=== PATIENT | male | born 1945 | race Caucasian/White ===

== ENCOUNTER → 2018-05-31 11:18 | Outpatient (CLI) | payer OTHER, SELFPAY ==
--- NOTE | 2018-05-31 | DI.MRI.S_ITS ---
PROCEDURE: MR LUMBAR SPINE WO CON INDICATIONS: LUMBAR DEGENERATIVE DISC DISEASE TECHNIQUE: Noncontrast sagittal T1 spin echo and T2 fast echo, coronal T2, sagittal STIR, axial T1 and T2 fast spin echo through the lumbar spine. COMPARISON: [facility], CR, XR LUMBAR SPINE 2 OR 3 VIEWS, 05/24/2018, 10:43. FINDINGS: Image quality: Excellent. Alignment and Curvature: 5 lumbar type vertebral bodies are present by plain film. Moderate rightward curvature of the mid lumbar spine. Mild grade 1 retrolisthesis of L1 on L2, L2 on L3, L3 on L4, L4-L5, and L5 on S1. Bone Marrow: Marrow is of normal overall signal. No acute vertebral body compression fractures. Moderate chronic wedging of L1. Schmorl's node invaginates the superior L1 endplate, with moderate surrounding reactive signal. Mild reactive signal within the endplates adjacent to the L1-L2, L2-L3, L3-L4, L4-L5, and L5-S1 intervertebral discs is present. L1 hemangioma is present. L4 hemangioma is present. Spinal Cord: Conus medullaris terminates at the upper L1 level. Visualized cord demonstrates normal signal and size. Paraspinous Soft Tissues: No paravertebral masses. L1-L2: Mild disc height loss and desiccation. Mild diffuse disc bulge. Mild facet and ligament flavum hypertrophy. Moderate for lipomatosis. Mild canal stenosis. Mild bilateral foraminal stenosis. L2-L3: Moderate disc height loss and desiccation. Mild diffuse disc bulge/osteophyte. Mild facet and ligamentum flavum hypertrophy bilaterally. Mild epidural lipomatosis. Mild canal stenosis. Mild bilateral foraminal stenosis. L3-L4: Severe disc height loss and desiccation. Mild diffuse disc bulge/osteophyte. Moderate facet hypertrophy bilaterally. Mild epidural lipomatosis. Mild canal stenosis. Mild bilateral foraminal stenosis. L4-L5: Moderate disc height loss and desiccation. Mild diffuse disc bulge. Mild bilateral facet and ligamentum flavum hypertrophy. Mild epidural lipomatosis. Mild canal stenosis. Mild left and moderate right foraminal stenosis. L5-S1: Moderate disc height loss and desiccation. Mild diffuse disc bulge, with superimposed broad based right far lateral protrusion. Mild bilateral facet hypertrophy. Mild canal stenosis. Moderate right and mild left foraminal stenosis. IMPRESSION: 1. Multilevel degenerative disc and facet disease, as well as ligamentum flavum hypertrophy and epidural lipomatosis. 2. Mild multilevel canal stenoses. 3. Multilevel foraminal stenoses, worst at L4-L5 on the right, and at L5-S1 on the right, where there are moderate foraminal stenoses. 4. Superior L1 Schmorl's node, possibly subacute. Dictated by: Linda Hernandez M.D. on 05/31/2018 at 13:17 Approved by: Linda Hernandez M.D. on 05/31/2018 at 13:22
== END ==
PROVIDERS: PCP Family Medicine; Visit Provider Podiatrist
DX: M51.36 Other intervertebral disc degeneration, lumbar region (principal); M51.37 Other intervertebral disc degeneration, lumbosacral region; M48.061 Spinal stenosis, lumbar region without neurogenic claudication; M48.07 Spinal stenosis, lumbosacral region; M51.46 Schmorl's nodes, lumbar region; E88.2 Lipomatosis, not elsewhere classified
CPT/HCPCS: 72148

== ENCOUNTER 2020-07-12 13:52 | Emergency (ER) | payer MEDICARE, OTHER, SELFPAY ==
[2020-07-12 14:00] VITALS: BP 154/70; PULSE 67; RESP 16; TEMP 36.3; O2SAT 99; BMI 28.4
[2020-07-12 14:57] LABS: Add Manual Diff / Slide Review NO; Basophils Absolute Auto 0 /uL (0-100); Basophils Percent Auto 0.7 % (0-2); Eosinophils Absolute Auto 100 /uL (0-450); Eosinophils Percent Auto 1.8 % (2-4); Hematocrit 36.3 % (41-53); Lymphocytes Absolute Auto 1700 /uL (1100-4500); Lymphocytes Percent Auto 30.6 % (25-40); Mean Corpuscular Volume 97.1 fL (80-100); Monocytes Absolute Auto 500 /uL (0-900); Monocytes Percent Auto 9.7 % (3-14); Neutrophils Absolute Auto 3100 /uL (1500-7000); Neutrophils Percent Auto 57.2 % (50-75); Platelet Count 163 X10^3/uL (150-400); Red Blood Cell Count 3.74 X10^6/uL (4.5-5.9); White Blood Cell Count 5.4 X10^3/uL (4.5-11.0)
[2020-07-12 15:00] LABS: Appearance Urine UA SL CLOUDY; Bilirubin Urine UA NEGATIVE (NEGATIVE); Color Urine UA BROWN; Glucose Urine UA NEGATIVE (Negative); Ketones Urine UA TRACE (NEGATIVE); Leukocyte Esterase Urine UA TRACE (NEGATIVE); Nitrite Urine UA NEGATIVE (Negative); Occult Blood Urine UA 3+ (Negative); Protein Urine UA 2+ (Negative); Specific Gravity Urine UA 1.025 (1.000-1.035); Urobilinogen Urine UA 0.2 E.U./dL (0.2)
[2020-07-12 15:07] LABS: Alanine Aminotransferase 19 IU/L (<50); Albumin 4.2 g/dL (3.5-5.0); Albumin Globulin Ratio 1.4 (1.0-2.8); Alkaline Phosphatase 74 U/L (38-126); Aspartate Aminotransferase 28 IU/L (17-59); BUN Creatinine Ratio 23.5 (6-22); Bilirubin Total 0.5 mg/dL (0.2-1.3); Blood Urea Nitrogen 19 mg/dL (9-20); Calcium 9.2 mg/dL (8.4-10.2); Carbon Dioxide 28 mmol/L (22-32); Chloride 105 mmol/L (98-107); Estimated Glomerular Filt Rate > 60.0 mL/min (>60); Globulin 2.9 g/dL (1.7-4.1); Glucose 91 mg/dL (80-110); HEMOLYSIS < 15 (0-50); Lipase 125 U/L (23-300); Potassium 4.1 mmol/L (3.4-5.1); Sodium 137 mmol/L (137-145); Total Protein 7.1 g/dL (6.3-8.2)
[2020-07-12 15:08] LABS: Amorphous Sediment Urine 1+; Bacteria Urine Occasional (0-1); Culture Indicated Urine Specimen Cultured; RBC Urine >100/HPF (0-5/HPF); WBC Urine 1-5/HPF (0-5/HPF)
--- NOTE | 2020-07-12 15:09 | ED_ITS ---
HPI - Male Genitourinary <KIMBERLY DuncanBC - Last Filed: 07/12/20 18:02> General Chief complaint: Urogenital-Male Stated complaint: urine dark brown/on Xarelto/Topral/wbc low [id number] Time Seen by Provider: 07/12/20 14:23 Source: patient Mode of arrival: Ambulatory Limitations: no limitations History of Present Illness HPI Narrative: The patient is a 74-year-old male nonsmoker with history of atrial flutter who presents with a chief complaint of change in his urine that occurred last . He noticed that his urine suddenly became very dark, almost like Dr. Bahena. Denies any dysuria, slight frequency. Denies any abnormal urgency. States that he was recently started on Xarelto given his atrial flutter. He denies any fevers nausea vomiting or diarrhea. He is concerned about slight fluid retention as he states he has gained some weight recently. 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 He denies any abnormal flank pain. States that he has history of a fracture lumbar vertebrae which has given him chronic pain for the past several decades. He states that he was seeing the cardiology nurse, who encouraged him to get his urinary issues checked out. Related Data Previous Rx's Medication Instructions Recorded nitrofurantoin monohyd/m-cryst 100 mg PO Q12H 7 Days #14 cap 07/12/20 [Macrobid] Allergies Allergy/AdvReac Type Severity Reaction Status Date / Time No Known Allergies Allergy Verified 07/12/20 17:07 Review of Systems <JAMAR Duncan - Last Filed: 07/12/20 18:02> Review of Systems Narrative: GENERAL: Denies chills, fatigue, malaise, fever, sweats. HEENT: Denies sinus pain, ear pain, sore throat, difficulty swallowing, dizziness. RESPIRATORY: Denies dyspnea, cough, wheezing, hemoptysis, sputum. CARDIOVASCULAR: Denies chest pain, palpitations, orthopnea, edema, GASTROINTESTINAL: Denies nausea, vomiting, abdominal pain, diarrhea, constipation, melena. : See HPI MUSCULOSKELETAL: denies weakness, joint pain, or bony pain SKIN: Denies rash, skin lesions, or other NEUROLOGIC: Denies weakness, headache, numbness, change in speech, confusion, seizures, incoordination. PSYCHIATRIC: No concerning psychosocial issues. 12 point review of systems is negative except for those stated above Patient History <JAMAR Duncan - Last Filed: 07/12/20 18:02> Family History (Updated 03/21/15 @ 00:00 by Conversion Provider) Father Diabetes mellitus Heart disease Mother Cancer Social History Smoking Status: Never smoker Smoking Status: Never smoker alcohol intake frequency: 0-2 drinks per day Exam <JAMAR Duncan - Last Filed: 07/12/20 18:02> Narrative Exam Narrative: GENERAL: This is a well-nourished, well-developed patient, in no acute distress HEAD: Atraumatic. Normocephalic. No temporal or scalp tenderness. EYES: Pupils equal round and reactive. Extraocular motions intact. No scleral icterus. No injection or drainage. ENT: Nose without bleeding, purulent drainage or septal hematoma. Wearing a m ask. Airway patent. NECK: Trachea midline. No JVD or lymphadenopathy. Supple, nontender, no meningea l signs. CARDIOVASCULAR: Regular rate and rhythm RESPIRATORY: Clear to auscultation. Breath sounds equal bilaterally. No wheezes, rales, or rhonchi. No cough. No increased respiratory effort. No accessory muscle use. GASTROINTESTINAL: Abdomen soft, non-tender, nondistended. No hepato-splenomegal y, or palpable masses. No guarding. EXTREMITIES: No clubbing, cyanosis, or edema. No joint tenderness, effusion, or edema noted. BACK: Nontender without deformity or crepitance. No CVA tenderness bilaterally NEURO: AOx3. Stable gait. SKIN: No rash or erythema. Initial Vital Signs Initial Vital Signs: Vital Signs Temperature 97.3 F L 07/12/20 14:00 Pulse Rate 67 07/12/20 14:00 Respiratory Rate 16 07/12/20 14:00 Blood Pressure 154/70 H 07/12/20 14:00 Pulse Oximetry 99 07/12/20 14:00 <Cassidy Forte DO - Last Filed: 07/12/20 19:36> Initial Vital Signs Initial Vital Signs: Vital Signs Temperature 97.3 F L 07/12/20 14:00 Pulse Rate 67 07/12/20 14:00 Respiratory Rate 16 07/12/20 14:00 Blood Pressure 154/70 H 07/12/20 14:00 Pulse Oximetry 99 07/12/20 14:00 Scores <JAMAR Duncan - Last Filed: 07/12/20 18:02> GCS [place] coma scale eye opening: Spontaneous [place] coma scale verbal response: Orientated [place] coma scale motor response: Obey commands [place] coma scale total score: 15 Course <JAMAR Duncan - Last Filed: 07/12/20 18:02> Orders Ordered: ED Orders 07/12/20 14:17 UA Complete [Urinalysis and Microscopic] Stat Urine Culture Stat 07/12/20 14:40 Complete Blood Count AUTO DIFF Stat Comprehensive Metabolic Panel Stat Creatine Kinase Stat Lipase Stat NT-proBNP (BNP-Adult 18+) Stat 07/12/20 14:50 EKG-12 Lead Stat Discontinued Medications Nitrofurantoin Macrocrystals (Nitrofurantoin Er 100 Mg Capsule) 100 mg PO NOW ONE Stop: 07/12/20 16:59 Last Admin: 07/12/20 17:20 Dose: 100 mg Documented by: LUNA Vital Signs Vital signs: Vital Signs - 8 hr 07/12/20 14:00 07/12/20 15:25 07/12/20 15:30 Temperature 97.3 F L Pulse Rate 67 60 59 L Respiratory Rate 16 25 H 14 Blood Pressure 154/70 H 148/71 H Pulse Oximetry 99 98 98 07/12/20 16:00 07/12/20 16:30 07/12/20 17:43 Temperature Pulse Rate 57 L 57 L 73 Respiratory Rate 15 14 20 Blood Pressure 145/71 H 153/75 H 142/73 H Pulse Oximetry 99 99 100 <Cassidy Forte DO - Last Filed: 07/12/20 19:36> Orders Ordered: ED Orders 07/12/20 14:17 UA Complete [Urinalysis and Microscopic] Stat Urine Culture Stat 07/12/20 14:40 Complete Blood Count AUTO DIFF Stat Comprehensive Metabolic Panel Stat Creatine Kinase Stat Lipase Stat NT-proBNP (BNP-Adult 18+) Stat 07/12/20 14:50 EKG-12 Lead Stat Discontinued Medications Nitrofurantoin Macrocrystals (Nitrofurantoin Er 100 Mg Capsule) 100 mg PO NOW ONE Stop: 12/07/20 16:59 Last Admin: 07/12/20 17:20 Dose: 100 mg Documented by: LUNA Vital Signs Vital signs: Vital Signs - 8 hr 07/12/20 14:00 07/12/20 15:25 07/12/20 15:30 Temperature 97.3 F L Pulse Rate 67 60 59 L Respiratory Rate 16 25 H 14 Blood Pressure 154/70 H 148/71 H Pulse Oximetry 99 98 98 07/12/20 16:00 07/12/20 16:30 07/12/20 17:43 Temperature Pulse Rate 57 L 57 L 73 Respiratory Rate 15 14 20 Blood Pressure 145/71 H 153/75 H 142/73 H Pulse Oximetry 99 99 100 MDM - Male Genitourinary <LUIS Duncan- - Last Filed: 07/12/20 18:02> Lab Data Attestation: I reviewed the patient's lab results. Result diagrams: 07/12/20 14:40 07/12/20 14:40 Labs: Lab Results 07/12/20 07/12/20 07/12/20 Range/Units 14:17 14:40 14:40 WBC 5.4 (4.5-11.0) X10^3/uL RBC 3.74 L (4.5-5.9) X10^6/uL Hgb 12.0 L (13.5-17.5) g/dL Hct 36.3 L (41-53) % MCV 97.1 (80-100) fL MCH 32.0 (26-34) PG MCHC 33.0 (30-36) % RDW 13.0 (11.6-14.8) % Plt Count 163 (150-400) X10^3/uL Neut % (Auto) 57.2 (50-75) % Lymph % (Auto) 30.6 (25-40) % [place] % (Auto) 9.7 (3-14) % Eos % (Auto) 1.8 L (2-4) % Baso % (Auto) 0.7 (0-2) % Neut # (Auto) 3100 (5583-0093) /uL Lymph # (Auto) 1700 (0129-3541) /uL [place] # (Auto) 500 (0-900) /uL Eos # (Auto) 100 (0-450) /uL Baso # (Auto) 0 (0-100) /uL Sodium 137 (137-145) mmol/L Potassium 4.1 (3.4-5.1) mmol/L Chloride 105 (98-107) mmol/L Carbon Dioxide 28 (22-32) mmol/L BUN 19 (9-20) mg/dL Creatinine 0.81 (0.66-1.25) mg/dL Estimated GFR > 60.0 (>60) mL/min BUN/Creatinine Ratio 23.5 H (6-22) Glucose 91 (80-110) mg/dL Calcium 9.2 (8.4-10.2) mg/dL Total Bilirubin 0.5 (0.2-1.3) mg/dL AST 28 (17-59) IU/L ALT 19 (<50) IU/L Alkaline Phosphatase 74 (38-126) U/L Total Creatine Kinase (55-170) U/L NT-Pro-B Natriuret Pep 320 H (<125) pg/mL Total Protein 7.1 (6.3-8.2) g/dL Albumin 4.2 (3.5-5.0) g/dL Globulin 2.9 (1.7-4.1) g/dL Albumin/Globulin Ratio 1.4 (1.0-2.8) Lipase 125 (23-300) U/L Urine Color Brown Urine Appearance Sl cloudy Urine pH 5.0 (4.5-8.0) Ur Specific [place] 1.025 (1.000-1.035) Urine Protein 2+ H (Negative) Urine Glucose (UA) Negative (Negative) g/dL Urine Ketones Trace H (NEGATIVE) Urine Occult Blood 3+ H (Negative) Urine Nitrate Negative (Negative) Urine Bilirubin Negative (NEGATIVE) Urine Urobilinogen 0.2 (0.2) E.U./dL Ur Leukocyte Esterase Trace H (NEGATIVE) Urine RBC >100/hpf H (0-5/HPF) Urine WBC 1-5/hpf (0-5/HPF) Amorphous Sediment 1+ Urine Bacteria Occasional (0-1) (None) Ur Culture Indicated? Specimen cultured 07/12/20 Range/Units 14:40 WBC (4.5-11.0) X10^3/uL RBC (4.5-5.9) X10^6/uL Hgb (13.5-17.5) g/dL Hct (41-53) % MCV (80-100) fL MCH (26-34) PG MCHC (30-36) % RDW (11.6-14.8) % Plt Count (150-400) X10^3/uL Neut % (Auto) (50-75) % Lymph % (Auto) (25-40) % [place] % (Auto) (3-14) % Eos % (Auto) (2-4) % Baso % (Auto) (0-2) % Neut # (Auto) (0829-0625) /uL Lymph # (Auto) (8938-4066) /uL [place] # (Auto) (0-900) /uL Eos # (Auto) (0-450) /uL Baso # (Auto) (0-100) /uL Sodium (137-145) mmol/L Potassium (3.4-5.1) mmol/L Chloride (98-107) mmol/L Carbon Dioxide (22-32) mmol/L BUN (9-20) mg/dL Creatinine (0.66-1.25) mg/dL Estimated GFR (>60) mL/min BUN/Creatinine Ratio (6-22) Glucose (80-110) mg/dL Calcium (8.4-10.2) mg/dL Total Bilirubin (0.2-1.3) mg/dL AST (17-59) IU/L ALT (<50) IU/L Alkaline Phosphatase (38-126) U/L Total Creatine Kinase 49 L (55-170) U/L NT-Pro-B Natriuret Pep (<125) pg/mL Total Protein (6.3-8.2) g/dL Albumin (3.5-5.0) g/dL Globulin (1.7-4.1) g/dL Albumin/Globulin Ratio (1.0-2.8) Lipase (23-300) U/L Urine Color Urine Appearance Urine pH (4.5-8.0) Ur Specific [place] (1.000-1.035) Urine Protein (Negative) Urine Glucose (UA) (Negative) g/dL Urine Ketones (NEGATIVE) Urine Occult Blood (Negative) Urine Nitrate (Negative) Urine Bilirubin (NEGATIVE) Urine Urobilinogen (0.2) E.U./dL Ur Leukocyte Esterase (NEGATIVE) Urine RBC (0-5/HPF) Urine WBC (0-5/HPF) Amorphous Sediment Urine Bacteria (None) Ur Culture Indicated? MDM Narrative Medical decision making narrative: The patient is a 74-year-old male nonsmoker on Xarelto who presents with a chief complaint of dark colored urine. His urine is slightly concerning for infection, leukocyte esterase. He is not in acute renal failure 0.81. He is not and rhabdomyolysis with a total CK 49. He appears well and nontoxic throughout stay in the ER, denies any concerns of pain. I spoke with Dr. Forte regarding the patient, and we elected to treat him for urinary tract infection at this point time rather than changing his Xarelto. I discussed at length the importance of following up with primary care provider in the next few days, as he will need to make sure that he is no longer having b lood in his urine and signs of infection have improved. He has not anemic with a hemoglobin of 12. Nitrofurantoin selected as the patient has good renal function does not interact with Xarelto. Patient has follow-up with primary care provider tomorrow. Given 1st dose in the emergency department, prescription sent in. Patient has no questions or concerns upon discharge and states understanding return precautions as well as follow-up care. <Cassidy Forte, DO - Last Filed: 07/12/20 19:36> Lab Data Labs: Lab Results 07/12/20 07/12/20 07/12/20 Range/Units 14:17 14:40 14:40 WBC 5.4 (4.5-11.0) X10^3/uL RBC 3.74 L (4.5-5.9) X10^6/uL Hgb 12.0 L (13.5-17.5) g/dL Hct 36.3 L (41-53) % MCV 97.1 (80-100) fL MCH 32.0 (26-34) PG MCHC 33.0 (30-36) % RDW 13.0 (11.6-14.8) % Plt Count 163 (150-400) X10^3/uL Neut % (Auto) 57.2 (50-75) % Lymph % (Auto) 30.6 (25-40) % [place] % (Auto) 9.7 (3-14) % Eos % (Auto) 1.8 L (2-4) % Baso % (Auto) 0.7 (0-2) % Neut # (Auto) 3100 (8796-7366) /uL Lymph # (Auto) 1700 (8552-1446) /uL [place] # (Auto) 500 (0-900) /uL Eos # (Auto) 100 (0-450) /uL Baso # (Auto) 0 (0-100) /uL Sodium 137 (137-145) mmol/L Potassium 4.1 (3.4-5.1) mmol/L Chloride 105 (98-107) mmol/L Carbon Dioxide 28 (22-32) mmol/L BUN 19 (9-20) mg/dL Creatinine 0.81 (0.66-1.25) mg/dL Estimated GFR > 60.0 (>60) mL/min BUN/Creatinine Ratio 23.5 H (6-22) Glucose 91 (80-110) mg/dL Calcium 9.2 (8.4-10.2) mg/dL Total Bilirubin 0.5 (0.2-1.3) mg/dL AST 28 (17-59) IU/L ALT 19 (<50) IU/L Alkaline Phosphatase 74 (38-126) U/L Total Creatine Kinase (55-170) U/L NT-Pro-B Natriuret Pep 320 H (<125) pg/mL Total Protein 7.1 (6.3-8.2) g/dL Albumin 4.2 (3.5-5.0) g/dL Globulin 2.9 (1.7-4.1) g/dL Albumin/Globulin Ratio 1.4 (1.0-2.8) Lipase 125 (23-300) U/L Urine Color Brown Urine Appearance Sl cloudy Urine pH 5.0 (4.5-8.0) Ur Specific [place] 1.025 (1.000-1.035) Urine Protein 2+ H (Negative) Urine Glucose (UA) Negative (Negative) g/dL Urine Ketones Trace H (NEGATIVE) Urine Occult Blood 3+ H (Negative) Urine Nitrate Negative (Negative) Urine Bilirubin Negative (NEGATIVE) Urine Urobilinogen 0.2 (0.2) E.U./dL Ur Leukocyte Esterase Trace H (NEGATIVE) Urine RBC >100/hpf H (0-5/HPF) Urine WBC 1-5/hpf (0-5/HPF) Amorphous Sediment 1+ Urine Bacteria Occasional (0-1) (None) Ur Culture Indicated? Specimen cultured 07/12/20 Range/Units 14:40 WBC (4.5-11.0) X10^3/uL RBC (4.5-5.9) X10^6/uL Hgb (13.5-17.5) g/dL Hct (41-53) % MCV (80-100) fL MCH (26-34) PG MCHC (30-36) % RDW (11.6-14.8) % Plt Count (150-400) X10^3/uL Neut % (Auto) (50-75) % Lymph % (Auto) (25-40) % [place] % (Auto) (3-14) % Eos % (Auto) (2-4) % Baso % (Auto) (0-2) % Neut # (Auto) (6911-7108) /uL Lymph # (Auto) (6325-0052) /uL [place] # (Auto) (0-900) /uL Eos # (Auto) (0-450) /uL Baso # (Auto) (0-100) /uL Sodium (137-145) mmol/L Potassium (3.4-5.1) mmol/L Chloride (98-107) mmol/L Carbon Dioxide (22-32) mmol/L BUN (9-20) mg/dL Creatinine (0.66-1.25) mg/dL Estimated GFR (>60) mL/min BUN/Creatinine Ratio (6-22) Glucose (80-110) mg/dL Calcium (8.4-10.2) mg/dL Total Bilirubin (0.2-1.3) mg/dL AST (17-59) IU/L ALT (<50) IU/L Alkaline Phosphatase (38-126) U/L Total Creatine Kinase 49 L (55-170) U/L NT-Pro-B Natriuret Pep (<125) pg/mL Total Protein (6.3-8.2) g/dL Albumin (3.5-5.0) g/dL Globulin (1.7-4.1) g/dL Albumin/Globulin Ratio (1.0-2.8) Lipase (23-300) U/L Urine Color Urine Appearance Urine pH (4.5-8.0) Ur Specific [place] (1.000-1.035) Urine Protein (Negative) Urine Glucose (UA) (Negative) g/dL Urine Ketones (NEGATIVE) Urine Occult Blood (Negative) Urine Nitrate (Negative) Urine Bilirubin (NEGATIVE) Urine Urobilinogen (0.2) E.U./dL Ur Leukocyte Esterase (NEGATIVE) Urine RBC (0-5/HPF) Urine WBC (0-5/HPF) Amorphous Sediment Urine Bacteria (None) Ur Culture Indicated? Discharge Plan Departure Patient Disposition: Home Clinical Impression: Urinary tract infection Qualifiers: Urinary tract infection type: site unspecified Hematuria presence: with hematuria Qualified Code(s): N39.0 - Urinary tract infection, site not specified Instructions: DI for Urinary Tract Infection (UTI) Activity Restrictions/Additional Instructions: Thank you for trusting us with your care today. As discussed, your urine is concerning for infection with blood and leukocyte esterase. I have prescribed antibiotic and sent your prescription to [facility]. We have given your 1st dose in the emergency department. Please monitor for fevers, decreased urine output and come back to the emergency department for any acute concerns. Please follow-up with primary care provider in the next few days. As discussed, your urine will need to be rechecked to make sure that there is no longer blood in it. At this point, if it gets worse or does not get better with the antibiotics, your blood thinner will likely need to be reconsidered. Please follow-up with primary care provider. Prescriptions: New nitrofurantoin monohyd/m-cryst [Macrobid] 100 mg capsule 100 mg PO Q12H 7 Days Qty: 14 RF: 0 Referrals: Kraig Rodriguez MD [Primary Care Provider] - <Cassidy Forte DO - Last Filed: 07/12/20 19:36> Cosign ED Attending Cosignature Attestation: I was immediately available in the department for consultation. This documentation has been reviewed and I agree with assessment and plan, case discussed with myself and plan included. Supervised by Cassidy Forte DO
[2020-07-12 15:16] LABS: NT-proBNP (BNP-Adult 18+) 320 pg/mL (<125)
[2020-07-12 15:25] VITALS: PULSE 60; RESP 25; O2SAT 98
[2020-07-12 15:29] LABS: Creatine Kinase 49 U/L (55-170)
[2020-07-12 15:30] VITALS: BP 148/71; PULSE 59; RESP 14; O2SAT 98
[2020-07-12 16:00] VITALS: BP 145/71; PULSE 57; RESP 15; O2SAT 99
[2020-07-12 16:30] VITALS: BP 153/75; PULSE 57; RESP 14; O2SAT 99
[2020-07-12] MEDS: NITROFURANTOIN ER 100 MG CAPSULE PO (17:20)
[2020-07-12 17:43] VITALS: BP 142/73; PULSE 73; RESP 20; O2SAT 100
== END 2020-07-12 17:47 | disposition home or self-care (01) ==
PROVIDERS: Emergency Medicine; Emergency Provider Nurse Practitioner Family; PCP Family Medicine
DX: N39.0 Urinary tract infection, site not specified (principal); I48.92 Unspecified atrial flutter
CPT/HCPCS: 36415; 80053; 81001; 82550; 83690; 83880; 85025; 87086; 93005; 99281; 99284

== ENCOUNTER 2020-08-15 12:42 | Emergency (ER) | payer MEDICARE, OTHER, SELFPAY ==
[2020-08-15] VITALS (7 sets, daily range): BP systolic 133–167; BP diastolic 67–81; PULSE 57–64; RESP 17–21; TEMP 36.3; O2SAT 96–100; BMI 28.4
[2020-08-15 14:13] LABS: Bacteria Urine None Seen; WBC Urine None Seen (0-5/HPF)
[2020-08-15 14:24] LABS: Appearance Urine UA TURBID; Bilirubin Urine UA NEGATIVE (NEGATIVE); Color Urine UA RED; Glucose Urine UA NEGATIVE (Negative); Ketones Urine UA NEGATIVE (NEGATIVE); Leukocyte Esterase Urine UA NEGATIVE (NEGATIVE); Nitrite Urine UA NEGATIVE (Negative); Occult Blood Urine UA 3+ (Negative); Protein Urine UA 2+ (Negative); Urobilinogen Urine UA 0.2 E.U./dL (0.2); pH Urine UA 6.5 (4.5-8.0)
[2020-08-15 14:25] LABS: Culture Indicated Urine Cult Not Indicated; RBC Urine >100/HPF (0-5/HPF)
--- NOTE | 2020-08-15 15:10 | ED.MALEGU ---
HPI - Male Genitourinary General Chief complaint: Urogenital-Male Stated complaint: urinating blood Time Seen by Provider: 08/15/20 15:10 Source: patient and old records reviewed Mode of arrival: Ambulatory Limitations: no limitations History of Present Illness HPI Narrative: This is a 74-year-old male who comes in with complaint of hematuria. Patient states had this going on for several weeks. He states that he was told at 1 point he had a bladder infection. He has continued to have hematuria and lives out on [facility]. He did come in July for evaluation had urinalysis as well as blood work but did not have any imaging at that time. He is on Xarelto for atrial flutter and has only been on this for about 4 weeks after requiring a cardioversion at [facility]. His only other medication is metoprolol. Has not had any other symptoms. No fevers, no chills, no chest pain, shortness of breath, no nausea, no vomiting, no diarrhea constipation, no flank or abdominal pain. 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 He denies any dysuria, occasional hesitancy, no sense urgency or incomplete emptying or frequency. He has not had any testicular pain. He has not had any discharge. He denies any allergies to medications. Related Data Allergies Allergy/AdvReac Type Severity Reaction Status Date / Time No Known Allergies Allergy Verified 07/12/20 17:07 Review of Systems Review of Systems ROS Unobtainable: All systems reviewed & are unremarkable except as noted in HPI and below Patient History Medical History (Updated 08/15/20 @ 15:49 by Cassidy Forte DO) Atrial flutter Family History (Updated 03/21/15 @ 00:00 by Conversion Provider) Father Diabetes mellitus Heart disease Mother Cancer Social History Smoking Status: Never smoker Smoking Status: Never smoker alcohol intake frequency: 0-2 drinks per day Substance Use Type: does not use Exam Narrative Exam Narrative: GENERAL: Alert and oriented x three, well-nourished, well-appearing male in no acute distress. HEENT: Head normocephalic, atraumatic, EOMI, pupils reactive, face symmetric, moist mucous membranes NECK: Supple, full range of motion CARDIOVASCULAR: Regular rate and rhythm without murmurs, rubs or gallops. RESPIRATORY: Breath sounds equal bilaterally, no wheezes rales or rhonchi. ABDOMEN: Soft, nontender. Normoactive bowel sounds all 4 quadrants. No guarding or rebound, rigidity, no mass : No CVA tenderness. Male: normal external examination, no penile discharge or lesions, testicles non-tender. EXTREMITIES: Normal range of motion, no clubbing or edema. Neurovascularly intact NEUROLOGICAL: Cranial nerves II through XII grossly intact. Moving all extremities SKIN: Warm, dry, no petechiae, no rashes or lesions. Initial Vital Signs Initial Vital Signs: Vital Signs Temperature 97.3 F L 08/15/20 13:03 Pulse Rate 64 08/15/20 13:03 Respiratory Rate 18 08/15/20 13:03 Blood Pressure 149/76 H 08/15/20 13:03 Pulse Oximetry 99 08/15/20 13:03 Course Orders Ordered: ED Orders 08/15/20 14:09 UA Complete [Urinalysis and Microscopic] Stat 08/15/20 15:07 Basic Metabolic Panel Stat Complete Blood Count AUTO DIFF Stat 08/15/20 15:44 CT kidney ureter bladder (KUB) Stat Reevaluation(s) Reevaluation #1: Patient is updated on findings. Time: 17:13 Vital Signs Vital signs: Vital Signs - 8 hr 08/15/20 13:03 08/15/20 15:11 08/15/20 15:17 Temperature 97.3 F L Pulse Rate 64 57 L 58 L Respiratory Rate 18 21 Blood Pressure 149/76 H 133/67 Pulse Oximetry 99 99 100 08/15/20 15:30 08/15/20 16:00 08/15/20 16:30 Temperature Pulse Rate 57 L 57 L 58 L Respiratory Rate 18 18 Blood Pressure 145/70 H 167/81 H Pulse Oximetry 96 98 99 08/15/20 17:00 Temperature Pulse Rate 58 L Respiratory Rate 17 Blood Pressure 150/71 H Pulse Oximetry 98 MDM - Male Genitourinary Lab Data Attestation: I reviewed the patient's lab results. Result diagrams: 08/15/20 15:07 08/15/20 15:07 Labs: Lab Results 08/15/20 08/15/20 08/15/20 Range/Units 14:09 15:07 15:07 WBC 5.5 (4.5-11.0) X10^3/uL RBC 3.86 L (4.5-5.9) X10^6/uL Hgb 12.2 L (13.5-17.5) g/dL Hct 37.1 L (41-53) % MCV 96.0 (80-100) fL MCH 31.5 (26-34) PG MCHC 32.8 (30-36) % RDW 12.7 (11.6-14.8) % Plt Count 184 (150-400) X10^3/uL Neut % (Auto) 59.7 (50-75) % Lymph % (Auto) 28.8 (25-40) % Nance % (Auto) 8.6 (3-14) % Eos % (Auto) 2.4 (2-4) % Baso % (Auto) 0.5 (0-2) % Neut # (Auto) 3300 (4788-6029) /uL Lymph # (Auto) 1600 (3871-5206) /uL Nance # (Auto) 500 (0-900) /uL Eos # (Auto) 100 (0-450) /uL Baso # (Auto) 0 (0-100) /uL Sodium 140 (137-145) mmol/L Potassium 4.2 (3.4-5.1) mmol/L Chloride 104 (98-107) mmol/L Carbon Dioxide 30 (22-32) mmol/L BUN 22 H (9-20) mg/dL Creatinine 0.84 (0.66-1.25) mg/dL Estimated GFR > 60.0 (>60) mL/min BUN/Creatinine Ratio 26.2 H (6-22) Glucose 95 (80-110) mg/dL Calcium 9.6 (8.4-10.2) mg/dL Urine Color Red Urine Appearance Turbid Urine pH 6.5 (4.5-8.0) Ur Specific [place] 1.010 (1.000-1.035) Urine Protein 2+ H (Negative) Urine Glucose (UA) Negative (Negative) g/dL Urine Ketones Negative (NEGATIVE) Urine Occult Blood 3+ H (Negative) Urine Nitrate Negative (Negative) Urine Bilirubin Negative (NEGATIVE) Urine Urobilinogen 0.2 (0.2) E.U./dL Ur Leukocyte Esterase Negative (NEGATIVE) Urine RBC >100/hpf H (0-5/HPF) Urine WBC None seen (0-5/HPF) Urine Bacteria None seen (None) Ur Culture Indicated? Cult not indicated Imaging Data CT scan - abdomen/pelvis: Radiologist's Impression: [facility] [place] [address] [id number] Scan ReportSigned Patient: Link Woodruff CMR#: [id number]: 7Acct:[id number]/Sex: 74 / MDate of Service: 08/15/20Loc: EDAccession Number: [id number] Procedure: CT kidney ureter bladder (KUB) Ordering Provider: Cassidy Forte D.O. PROCEDURE: CT KIDNEY URETER BLADDER (KUB) INDICATIONS: painless hematuria. on thinners. TECHNIQUE: Noncontrast 5 mm thick sections acquired from the diaphragms to the symphysis. 5 mm thick coronal and sagittal reformats were then performed. For radiation dose reduction, the following was used: automated exposure control, adjustment of mA and/or kV according to patient size. COMPARISON: [facility], , RIBS UNILATERAL 2 VIEWS, 09/14/2016, 9:04. [facility], , CHEST 2 VIEW, 04/20/2017, 13:59. FINDINGS: Image quality: Excellent. Lung bases: Calcified right lower lobe granuloma, (3/6). Present on the chest radiograph from 2017. Heart size is normal. Urinary system: Both kidneys are normal in size. No kidney stones. No hydronephrosis or perinephric fat stranding. Both ureters appear non-dilated throughout their expected courses. Bladder wall thickness is normal; no calcified bladder stones. Other solid organs: Liver is normal in size. Benign cyst in the right lobe of the liver measuring 6.2 cm. Gallbladder is within normal limits. Pancreas is normal in contours. Spleen is normal in size. No adrenal nodules. Peritoneum and bowel: Unenhanced bowel loops demonstrate normal wall thickness and caliber. Normal appendix. No free fluid or air. Nodes and vessels: No retroperitoneal or mesenteric adenopathy by size criteria. Aorta and inferior vena cava are normal in caliber. Moderate calcified atherosclerotic plaque. Abdominal wall: Small fat containing periumbilical hernia. Pelvis: No free pelvic fluid. No definite inguinal hernias or adenopathy. Bones: No suspicious bony lesions. Extensive DDD. Mild retrolisthesis of L1 on L2 and L2 on L3. L1 Schmorl's node. No vertebral body compression fractures. IMPRESSION: 1. No kidney stones. No hydronephrosis. 2. Prominent stool throughout the colon. This could be due to constipation. 3. No free fluid. Consider CT IVP for hematuria. Dictated by: Raul Jeffrey M.D. on 08/15/2020 at 15:28 Approved by: Raul Jeffrey M.D. on 08/15/2020 at 15:39 [facility] Narrative Medical decision making narrative: Patient arrives today with complaint of painless hematuria there is no obvious signs of infection. On his last visit in July he had trace leukocyte esterase but urine culture showed no growth from 07/12/2020. Patient is on anticoagulation this does make it more likely to have hematuria but secondary to the difficulty of him being able to get imaging and further workup living on [facility] labs were repeated today as well as CT KUB ordered. Imaging does not show any clear cause for his hematuria. Patient was given referral to Urology he also has been given a referral to Dr. Liang was with Urology in [place]. Discharge Plan Departure Patient Disposition: Home Clinical Impression: Hematuria Instructions: DI for Hematuria Activity Restrictions/Additional Instructions: Follow-up with urology. Call for an appointment. You likely need cystoscopy. You may continue home medications including Xarelto. If your bleeding worsens significantly I would discussed with her physician stopping her Xarelto until you can be further evaluated. Return for fevers, lightheadedness or passing out, new abdominal, flank or changing back pain, persistent vomiting, inability to urinate, new chest pain or shortness of breath or other new or concerning symptoms. Referrals: Suly Lopez MD [Physician] - Raghav Liang MD [Non-Staff] - Kraig Rodriguez MD [Primary Care Provider] -
--- NOTE | 2020-08-15 15:44 | DI.CT.S_ITS ---
PROCEDURE: CT KIDNEY URETER BLADDER (KUB) INDICATIONS: painless hematuria. on thinners. TECHNIQUE: Noncontrast 5 mm thick sections acquired from the diaphragms to the symphysis. 5 mm thick coronal and sagittal reformats were then performed. For radiation dose reduction, the following was used: automated exposure control, adjustment of mA and/or kV according to patient size. COMPARISON: [facility], , RIBS UNILATERAL 2 VIEWS, 09/14/2016, 9:04. [facility], CHEST 2 VIEW, 04/20/2017, 13:59. FINDINGS: Image quality: Excellent. Lung bases: Calcified right lower lobe granuloma, (3/6). Present on the chest radiograph from 2017. Heart size is normal. Urinary system: Both kidneys are normal in size. No kidney stones. No hydronephrosis or perinephric fat stranding. Both ureters appear non-dilated throughout their expected courses. Bladder wall thickness is normal; no calcified bladder stones. Other solid organs: Liver is normal in size. Benign cyst in the right lobe of the liver measuring 6.2 cm. Gallbladder is within normal limits. Pancreas is normal in contours. Spleen is normal in size. No adrenal nodules. Peritoneum and bowel: Unenhanced bowel loops demonstrate normal wall thickness and caliber. Normal appendix. No free fluid or air. Nodes and vessels: No retroperitoneal or mesenteric adenopathy by size criteria. Aorta and inferior vena cava are normal in caliber. Moderate calcified atherosclerotic plaque. Abdominal wall: Small fat containing periumbilical hernia. Pelvis: No free pelvic fluid. No definite inguinal hernias or adenopathy. Bones: No suspicious bony lesions. Extensive DDD. Mild retrolisthesis of L1 on L2 and L2 on L3. L1 Schmorl's node. No vertebral body compression fractures. IMPRESSION: 1. No kidney stones. No hydronephrosis. 2. Prominent stool throughout the colon. This could be due to constipation. 3. No free fluid. Consider CT IVP for hematuria. Dictated by: Raul Jeffrey M.D. on 08/15/2020 at 15:28 Approved by: Raul Jeffrey M.D. on 08/15/2020 at 15:39
[2020-08-15 16:00] LABS: BUN Creatinine Ratio 26.2 (6-22); Blood Urea Nitrogen 22 mg/dL (9-20); Calcium 9.6 mg/dL (8.4-10.2); Carbon Dioxide 30 mmol/L (22-32); Chloride 104 mmol/L (98-107); Estimated Glomerular Filt Rate > 60.0 mL/min (>60); Glucose 95 mg/dL (80-110); HEMOLYSIS < 15 (0-50); Potassium 4.2 mmol/L (3.4-5.1); Sodium 140 mmol/L (137-145)
[2020-08-15 16:01] LABS: Add Manual Diff / Slide Review NO; Basophils Absolute Auto 0 /uL (0-100); Basophils Percent Auto 0.5 % (0-2); Eosinophils Absolute Auto 100 /uL (0-450); Eosinophils Percent Auto 2.4 % (2-4); Hematocrit 37.1 % (41-53); Hemoglobin 12.2 g/dL (13.5-17.5); Lymphocytes Absolute Auto 1600 /uL (1100-4500); Lymphocytes Percent Auto 28.8 % (25-40); Mean Corpuscular HGB Conc 32.8 % (30-36); Mean Corpuscular Hemoglobin 31.5 PG (26-34); Monocytes Absolute Auto 500 /uL (0-900); Monocytes Percent Auto 8.6 % (3-14); Neutrophils Absolute Auto 3300 /uL (1500-7000); Neutrophils Percent Auto 59.7 % (50-75); Platelet Count 184 X10^3/uL (150-400); Red Blood Cell Count 3.86 X10^6/uL (4.5-5.9); Red Cell Distribution Width 12.7 % (11.6-14.8); White Blood Cell Count 5.5 X10^3/uL (4.5-11.0)
--- NOTE | 2020-08-15 16:02 | PC.NURSE ---
pt is here for blood in urine, denies pain, N/V. Pt is on blood thinners for AFib.
== END 2020-08-15 17:28 | disposition home or self-care (01) ==
PROVIDERS: Emergency Provider Emergency Medicine; PCP Family Medicine
DX: R31.9 Hematuria, unspecified (principal); I48.92 Unspecified atrial flutter; Z79.01 Long term (current) use of anticoagulants
CPT/HCPCS: 36415; 74176; 80048; 81001; 85025; 99284

== ENCOUNTER → 2020-08-31 11:07 | Outpatient (CLI) | payer MEDICARE, OTHER, SELFPAY ==
--- NOTE | 2020-08-31 | DI.CT.S_ITS ---
PROCEDURE: CT ABDOMEN PELVIS WO/W CON INDICATIONS: gross hematuria TECHNIQUE: Optional 5 mm thick noncontrast images acquired from the diaphragm to the symphysis pubis. After the administration of intravenous contrast, 5 mm thick images acquired from the diaphragm to the symphysis pubis after a 10-minute delay. 2 mm thick coronal and sagittal reformats were then performed of the kidneys and ureters. For radiation dose reduction, the following was used: automated exposure control, adjustment of mA and/or kV according to patient size. COMPARISON: [facility], CR, CHEST 2 VIEW, 09/14/2016, 9:01. [facility], CT, CT KIDNEY URETER BLADDER (KUB), 08/15/2020, 16:09. FINDINGS: Image quality: Excellent. Lung bases: A calcified nodule is redemonstrated within the right lower lobe compatible with a calcified granuloma. This likely corresponds to a dense nodule on the prior chest x-ray. Heart size is normal. Moderate coronary arterial vascular calcification noted within the partially visualized heart. Urinary system: The kidneys demonstrate no renal stones or hydronephrosis. No perinephric fat stranding. There is symmetric bilateral renal enhancement. No discrete renal mass. There are a few small hypodense foci in the kidneys which are too small to characterize but likely represent small cysts. Renal calyces appear normal in morphology when filled with contrast without suspicious filling defects. Opacified portions of both ureters demonstrate normal in caliber. No calcified bladder stones. There is mild concentric bladder wall thickening and trabeculation. The prostate is slightly enlarged. Other solid organs: There is a lobulated cyst redemonstrated anteriorly in the right hepatic lobe. A few additional small hypodense foci are present throughout the liver which are too small to characterize but likely represent cysts. The gallbladder appears within normal limits without calcified gallstones. Biliary system is non-dilated. Pancreas enhances normally. No peripancreatic fat stranding or fluid collections. No pancreatic duct dilatation. The spleen is normal in size. No adrenal nodules. Peritoneum and bowel: Bowel loops demonstrate normal wall thickness and caliber. No free fluid or air. Nodes and vessels: No retroperitoneal or mesenteric adenopathy by size criteria. Aorta and inferior vena cava are normal in size. Abdominal wall: No ventral hernias. Pelvis: No pathologic free pelvic fluid. No inguinal hernias or adenopathy. Bones: No suspicious bony lesions. No vertebral body compression fractures. IMPRESSION: 1. No nephrolithiasis or suspicious filling defects within the renal collecting systems. No discrete renal mass identified. 2. Mild bladder wall thickening and trabeculation suggestive of chronic bladder outlet obstruction. The prostate is slightly enlarged. Dictated by: Jj Clay M.D. on 08/31/2020 at 17:02 Approved by: Jj Clay M.D. on 08/31/2020 at 17:10
== END ==
PROVIDERS: PCP Family Medicine; Referring Provider Urology; Visit Provider Urology
DX: R31.0 Gross hematuria (principal); N32.89 Other specified disorders of bladder
CPT/HCPCS: 74178

== ENCOUNTER → 2022-11-27 08:40 | Outpatient (CLI) | payer MEDICARE, OTHER, SELFPAY ==
--- NOTE | 2022-11-27 08:41 | DI.CT.S_ITS ---
PROCEDURE: CT CHEST WO CON INDICATIONS: F/U PNEUMONIA AND MEDIALSTINAL ADENOPATHY TECHNIQUE: Noncontrast 5 mm thick sections acquired from the pulmonary apices to the posterior costophrenic angles. 1 mm lung window, 5 mm thick coronal and sagittal and 7 mm axial MIP reformats were then acquired. For radiation dose reduction, the following was used: automated exposure control, adjustment of mA and/or kV according to patient size. COMPARISON: [facility], CR, CHEST 2 VIEW, 04/20/2017, 13:59. Outside Facility, RG, CT THORAX WITH CONTRAST, 10/21/2022, 21:10. FINDINGS: Image quality: Excellent. Lungs and pleura: No acute air space opacities. There is a 5 mm nodule in the right upper lobe (series 3, image 55). A 3 mm nodule is present in the superior segment of the right lower lobe (series 3, image 126). A calcified granuloma is present in the right lower lobe. Mild bilateral pleural nodularity without discrete pleural mass. No pleural effusions or pneumothorax. Central and peripheral airways are patent and normal in caliber. Mediastinum: Heart size is normal. Trace pericardial effusion. There is moderate coronary artery calcification consistent with atherosclerosis. No mediastinal adenopathy by size criteria. There is a 0.8 cm paratracheal lymph node, most likely reactive. Thoracic aorta and central pulmonary arteries are normal in size. Esophagus is normal in caliber. Small hiatal hernia. Bones and chest wall: No suspicious bony lesions. No vertebral body compression fractures. No axillary or supraclavicular adenopathy by size criteria. Thyroid gland is normal. Abdomen: Visualized upper abdominal solid organs and bowel loops appear normal in the absence of contrast. Note are made of hepatic cysts. IMPRESSION: 1. No acute pneumonia. 2. A prominent subcentimeter mediastinal lymph node in the right paratracheal area, most likely reactive. 3. There are couple of pulmonary nodules in right lung. Please see enclosed follow-up recommendation. 4. Moderate coronary artery atherosclerosis. Fleischner Society criteria for SOLID lung nodule followup. Nodule size (mm)Low-risk patientHigh-risk patient?4No follow-up neededFollow-up at 12 mo; if no change, no further follow-up>[id number] CT at 12 mo; if no change, no further follow-up needed.Initial follow-up CT at 6-12 mo, then 18-24 mo if no change. >6-8Initial follow-up CT at 6-12 mo, then 18-24 mo if no change. Initial follow-up CT at 3-6 mo, then 9-12 mo and 24 mo if no change. >8Follow-up CT at 3, 9, 24 mo. Or PET and/or biopsy.Same as for low-risk pts. Dictated by: John Loo M.D. on 12/04/2022 at 9:24 Approved by: John Loo M.D. on 12/04/2022 at 9:32
== END ==
PROVIDERS: PCP Family Medicine; Referring Provider Internal Medicine Critical Care Medicine; Visit Provider Internal Medicine Critical Care Medicine
DX: R59.0 Localized enlarged lymph nodes (principal); R91.8 Other nonspecific abnormal finding of lung field; I25.10 Atherosclerotic heart disease of native coronary artery without angina pectoris; K44.9 Diaphragmatic hernia without obstruction or gangrene; K76.89 Other specified diseases of liver
CPT/HCPCS: 71250

== ENCOUNTER → 2023-03-14 16:14 | Outpatient (CLI) | payer MEDICARE, OTHER, SELFPAY ==
--- NOTE | 2023-03-14 | DI.MRI.S_ITS ---
PROCEDURE: MR KNEE RT WO CON INDICATIONS: Unspecified internal derangement of right knee TECHNIQUE: Noncontrast sagittal PD fast spin echo and T2 fast spin echo with fat saturation, sagittal 3-D FLASH with fat saturation; coronal T1 spin echo and PD fast spin echo with fat saturation, and axial PD fast spin echo with fat saturation through the knee. COMPARISON: None. FINDINGS: Image quality: Excellent. Menisci: Medial extrusion of the medial meniscus is present. There is linear oblique and horizontal high signal intensity within the inner, middle, and peripheral thirds of the medial meniscal body and posterior horn, demonstrating inferior articular surface extension, indicating complex tearing. Linear oblique high T2 signal intensity traverses the inner, middle, and peripheral thirds of the lateral meniscal body, demonstrating inferior articular surface extension, indicating oblique tearing. Cruciate ligaments: The anterior and posterior cruciate ligaments appear intact. Medial structures: There is partial-thickness tearing of the anterior fibers of the medial collateral ligament. Visualized portions of the pes anserinus tendons appear normal. No abnormal bursal fluid. Lateral structures: The lateral collateral ligament, long and short heads of the biceps femoris tendon appear intact. The popliteus tendon appears normal. Iliotibial band appears normal. Anterior structures: The quadriceps and patellar tendons appear intact. Patellar alignment is normal. Lateral ventral trochlear prominence is present, with shallow trochlear groove. Moderate edema in the superolateral aspect of the infrapatellar fat pad. Bones and cartilage: No bone marrow contusions or fractures. Mild subchondral cyst formation within the lateral patellar apex and lateral femoral trochlea. Mild tricompartmental periarticular osteophyte formation. Moderate articular cartilage loss diffusely overlies the weight-bearing aspects of the medial femoral condyle and medial tibial plateau. Moderate articular cartilage loss overlies the medial and lateral patellar facets. Superimposed high-grade articular cartilage loss overlies the lateral patellar facet inferiorly. Joint space: There is physiologic knee joint fluid. No Muñiz's cyst. Normal appearing synovial plicae are incidentally noted. IMPRESSION: 1. Medial and lateral meniscal tearing. 2. Tricompartmental osteoarthritis with associated articular cartilage loss. 3. Findings consistent with lateral patellofemoral friction syndrome in the appropriate clinical setting. 4. Partial-thickness tearing of the anterior fibers of the medial collateral ligament. Dictated by: Linda Hernandez M.D. on 03/15/2023 at 9:02 Approved by: Linda Hernandez M.D. on 03/15/2023 at 9:05
== END ==
PROVIDERS: PCP Family Medicine; Referring Provider Family Medicine; Visit Provider Family Medicine
DX: S83.241A Other tear of medial meniscus, current injury, right knee, initial encounter (principal); S83.281A Other tear of lateral meniscus, current injury, right knee, initial encounter; S83.411A Sprain of medial collateral ligament of right knee, initial encounter; M23.91 Unspecified internal derangement of right knee
CPT/HCPCS: 73721

== ENCOUNTER → 2023-07-18 14:00 | Outpatient (CLI) | payer MEDICARE, OTHER, SELFPAY ==
--- NOTE | 2023-07-18 14:03 | DI.CT.S_ITS ---
PROCEDURE: CT CHEST ABD PEL W CON INDICATIONS: Abnormal weight loss TECHNIQUE: After the administration of oral and intravenous contrast, axial sections acquired from the supraclavicular neck to the pubic symphysis. Coronal and sagittal reformats were performed. For radiation dose reduction, the following was used: automated exposure control, adjustment of mA and/or kV according to patient size. COMPARISON: [facility], CT, CT KIDNEY URETER BLADDER (KUB), 08/15/2020, 16:09. Outside Facility, RG, CT THORAX WITH CONTRAST, 10/21/2022, 21:10. [facility], CT, CT ABDOMEN PELVIS WO/W CON, 08/31/2020, 11:14. [facility], CT, CT CHEST WO CON, 11/27/2022, 8:59. FINDINGS: Image quality: Excellent. CHEST: Lower Neck: No enlarged lymph nodes. Thyroid: Within normal limits. Axillae: No enlarged lymph nodes. Chest Wall: Unremarkable. Lungs and Airways: There are multiple lung nodules. Reference nodules are listed in the following: Nodule 1: 5 mm; right upper lobe; series 6, image 69; stable. Nodule 2: 3 mm; right lower lobe; series 6, image 139; stable. Nodule 3: 4 mm; left upper lobe; series 6, image 96; stable. There is a calcified nodule in the right lower lobe. Pleura: No pneumothorax or pleural effusions. Heart: Heart size is normal. No pericardial effusion. Moderate coronary artery atherosclerosis. Thoracic Vessels: The aorta and pulmonary arteries demonstrate normal size. Mediastinum and Sharri: No enlarged lymph nodes. Borderline sized reactive mediastinal and hilar lymph nodes are noted. Esophagus: No wall thickening. Small hiatal hernia. ABDOMEN: Liver: Mild hepatomegaly. There are multiple hepatic cysts. No solid mass. Gallbladder: No radiopaque gallstones or wall thickening. Biliary ducts: No biliary dilation. Pancreas: No ductal dilation. Spleen: Size is within normal limits. Adrenal Glands: No adrenal nodules. Kidneys and Ureters: No hydronephrosis. No solid mass. No complex renal cystic lesion which requires follow up. Stomach and Bowel: Appearance of gastric wall thickening is likely due to inadequate distention. Small bowel demonstrates normal caliber. Normal colonic caliber, without significant wall thickening. There is a large amount of stool in colon. Normal appendix. Peritoneum: Mild mesenteric stranding. No abnormal intraperitoneal fluid. No free air. Ventral Wall: No hernia. Abdominal Nodes: No retroperitoneal or mesenteric adenopathy by size criteria. Vessels: Aorta and inferior vena cava are normal in size. Moderate atherosclerosis. PELVIS: Pelvic Organs: Prostate is enlarged.. Bladder: Mild concentric thickening of urinary bladder suggests chronic bladder outlet obstruction. Pelvic Nodes: No enlarged lymph nodes. Miscellaneous: No inguinal hernias are seen. Bones: Scoliosis and degenerative changes in thoracic and lumbar spine. There is osteopenia. IMPRESSION: 1. A cause for weight loss is not identified on CT. 2. Stable pulmonary nodules. Recommend continue CT follow-up to document stability. 3. Mild mesenteric stranding, nonspecific and compatible with mesenteric panniculitis. 4. There is a large amount of stool in colon. 5. Enlargement of prostate. Mild bladder wall thickening suggests bladder outlet obstruction. Dictated by: John Loo M.D. on 07/18/2023 at 21:31 Approved by: John Loo M.D. on 07/19/2023 at 10:28
[2023-07-18 14:37] LABS: Estimated Glomerular Filt Rate > 60 mL/min (>60)
== END ==
PROVIDERS: Radiology Diagnostic Radiology; PCP Family Medicine; Referring Provider Family Medicine; Visit Provider Family Medicine
DX: R63.4 Abnormal weight loss (principal); R91.8 Other nonspecific abnormal finding of lung field; I25.10 Atherosclerotic heart disease of native coronary artery without angina pectoris; K76.89 Other specified diseases of liver; N40.0 Benign prostatic hyperplasia without lower urinary tract symptoms; M41.9 Scoliosis, unspecified; M47.814 Spondylosis without myelopathy or radiculopathy, thoracic region; M47.816 Spondylosis without myelopathy or radiculopathy, lumbar region
CPT/HCPCS: 36415; 71260; 74177; 82565; Q9967

== ENCOUNTER → 2024-02-22 16:12 | Outpatient (CLI) | payer MEDICARE, OTHER, SELFPAY ==
--- NOTE | 2024-02-22 16:13 | DI.MRI.S_ITS ---
PROCEDURE: MR SHOULDER LT WO CON INDICATIONS: LEFT SHOULDER PAIN TECHNIQUE: Noncontrast oblique coronal T2 fast spin echo with fat saturation, oblique sagittal T1 spin echo and T2 fast spin echo with fat saturation, axial T1 spin echo and T2 fast spin echo with fat saturation through the shoulder. COMPARISON: None. FINDINGS: Image quality: Excellent. Rotator cuff: Distal supraspinatus and infraspinatus tendinosis is seen. Low-grade partial-thickness tear involving superior to mid fibers of distal subscapularis near musculotendinous junction is also noted. No full-thickness rotator cuff tendon rupture. Sagittal images demonstrate no significant rotator cuff muscle atrophy. Bones and bursae: Moderate acromioclavicular joint osteoarthritic changes are seen with joint space narrowing and downward osteophyte formation depressing the musculotendinous junction of supraspinatus. Severe glenohumeral joint osteoarthritic changes are noted with near complete loss of joint space, extensive subchondral sclerosis and marginal osteophyte formation. Type 2 acromion, without an os acromiale. Marrow edema is noted involving medial aspect of humeral head and adjacent glenoid without discrete fracture line. Small to moderate amount of joint effusion and subacromial subdeltoid bursal fluid is seen. There are suggestion of loose bodies within tendon sheath of proximal biceps tendon along proximal humeral shaft medial to the bicipital groove. Capsule and soft tissues: There is global signal abnormality throughout posterior labrum and in anterior inferior labrum suggestive of extensive labral tear. Fluid distending bicipital tendon sheath is seen with mildly thickened proximal long head of biceps tendon. The rotator interval appears normal, without fibrosis. The coracohumeral ligament is normal in thickness. IMPRESSION: 1. 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 No fracture or dislocation. Contusion versus changes secondary to osteoarthritis involving glenoid and adjacent medial aspect of humeral head. 2. Small to moderate joint effusion and subacromial subdeltoid bursal fluid. Fluid also seen distending tendon sheath of proximal long head of biceps tendon along proximal humeral shaft containing multiple loose bodies. 3. Distal CT scan dated and infraspinatus tendinosis. Low-grade partial-thickness tear involving superior to mid fibers of distal subscapularis. No full-thickness rotator cuff tendon rupture. No muscle atrophy. 4. Suggestion of extensive posterior labral tear and anterior inferior labral tear. 5. Low to moderate grade tenosynovitis involving proximal long head of biceps. Dictated by: Remigio Zambrano M.D. on 02/25/2024 at 9:43 Approved by: Remigio Zambrano M.D. on 02/25/2024 at 9:58
== END ==
PROVIDERS: PCP Family Medicine; Referring Provider Family Medicine; Visit Provider Family Medicine
DX: M75.112 Incomplete rotator cuff tear or rupture of left shoulder, not specified as traumatic (principal); M19.012 Primary osteoarthritis, left shoulder; M25.412 Effusion, left shoulder; M75.22 Bicipital tendinitis, left shoulder
CPT/HCPCS: 73221

== ENCOUNTER → 2024-06-23 11:39 | Outpatient (CLI) | payer MEDICARE, OTHER, SELFPAY ==
--- NOTE | 2024-06-23 | DI.MRI.S_ITS ---
PROCEDURE: MR KNEE RT WO CON INDICATIONS: pain in right knee TECHNIQUE: Noncontrast sagittal PD fast spin echo and T2 fast spin echo with fat saturation, sagittal 3-D FLASH with fat saturation; coronal T1 spin echo and PD fast spin echo with fat saturation, and axial PD fast spin echo with fat saturation through the knee. COMPARISON: [facility], MR, MR KNEE RT WO CON, 03/14/2023, 16:49. FINDINGS: Image quality: Excellent. Menisci: Medial extrusion of the medial meniscus is present, as before. There is linear oblique and horizontal high T2 signal intensity involving the inner, middle, and peripheral thirds of the medial meniscal body and posterior horn, demonstrating inferior articular surface extension, indicating complex tearing, as before. Linear oblique high T2 signal intensity traverses the inner, middle, and peripheral thirds of the lateral meniscal body, demonstrating inferior articular surface extension, indicating oblique tearing, as before. Cruciate ligaments: The anterior and posterior cruciate ligaments appear intact. Medial structures: No change in chronic partial-thickness tearing of the anterior fibers of the medial collateral ligament. Visualized portions of the pes anserinus tendons appear normal. No abnormal bursal fluid. Lateral structures: The lateral collateral ligament, long and short heads of the biceps femoris tendon appear intact. The popliteus tendon appears normal. Iliotibial band appears normal. Anterior structures: The quadriceps and patellar tendons appear intact. Patellar alignment is normal. Lateral ventral trochlear prominence is present. Mild edema in the superolateral aspect of the infrapatellar fat pad. Bones and cartilage: No bone marrow contusions or fractures. Subchondral degenerative marrow edema within the patellar apex, lateral patellar facet, and lateral femoral trochlea. Mild tricompartmental periarticular osteophyte formation. Severe articular cartilage loss overlies the weight-bearing aspects of the medial femoral condyle and medial tibial plateau. Progressive, moderate and high-grade articular cartilage loss overlies the patellar apex and lateral patellar facet. Joint space: There is physiologic knee joint fluid. No Muñiz's cyst. Normal appearing synovial plicae are incidentally noted. IMPRESSION: 1. No change in medial and lateral meniscal tearing. 2. 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 3. No change in findings consistent with lateral patellofemoral friction syndrome in the appropriate clinical setting. 4. No change in partial-thickness tearing of the medial collateral ligament. Dictated by: Linda Hernandez M.D. on 06/23/2024 at 14:17 Approved by: Linda Hernandez M.D. on 06/23/2024 at 14:23
== END ==
PROVIDERS: PCP Family Medicine; Referring Provider Family Medicine; Visit Provider Family Medicine
DX: S83.231A Complex tear of medial meniscus, current injury, right knee, initial encounter (principal); S83.281A Other tear of lateral meniscus, current injury, right knee, initial encounter; S83.411A Sprain of medial collateral ligament of right knee, initial encounter; M17.11 Unilateral primary osteoarthritis, right knee; M25.561 Pain in right knee
CPT/HCPCS: 73721

== ENCOUNTER → 2025-02-19 09:04 | Outpatient (CLI) | payer MEDICARE, OTHER, SELFPAY ==
--- NOTE | 2025-02-19 09:07 | DI.RAD.S_ITS ---
PROCEDURE: XR LUMBAR SPINE 2-3V INDICATIONS: BACK PAIN TECHNIQUE: 3 views of the lumbar spine were acquired. COMPARISON: [facility], CT, CT CHEST ABD PEL W CON, 07/18/2023, 15:05. FINDINGS: Bones: 5 [id number] vertebrae are present. There is mildly scoliotic bony alignment without appreciable change from the curvature noted during CT scanning on review from 07/18/23. No new vertebral body compression fractures. Chronic degenerative change and facet osteoarthritis with a mild anterior wedge L1 compression fracture all appear chronic, but mildly worsened degenerative change has developed over the thoracolumbar junction and lumbosacral spine, moderately severe overall No suspicious bony lesions that would suggest presence of infection or neoplasm.. Soft tissues: Overlying bowel gas pattern is normal. No suspicious soft tissue calcifications. IMPRESSION: No definite acute disease but moderately severe to severe degenerative disc disease and facet osteoarthritis with a chronic mild to moderate anterior wedge compression fracture at L1 are again noted. There is expected worsening of degenerative change from the comparison CT 07/28. MR scanning would be recommended for more accurate assessment of degree of spinal and foraminal stenosis or subtle acute disease if clinically indicated. Dictated by: Deandre Baig M.D. on 02/19/2025 at 11:11 Approved by: Deandre Baig M.D. on 02/19/2025 at 11:15
--- NOTE | 2025-02-19 09:07 | DI.RAD.S_ITS ---
PROCEDURE: XR THORACIC SPINE 2V INDICATIONS: BACK PAIN TECHNIQUE: A total of 2 views of the thoracic spine were acquired. COMPARISON: [facility], CT, CT CHEST ABD PEL W CON, 07/18/2023, 15:05. FINDINGS: Bones: No fractures or dislocations. Chronic mild to moderate convex leftward scoliosis is again noted at the thoracolumbar junction. No suspicious bony lesions. 12 pairs of ribs are noted, and appear intact where visualized. Chronic degenerative disc disease and facet osteoarthritis best seen over the lower half of the thoracic spine appears near equivalent to that present on sagittal reconstruction imaging from CT scanning 07/18/23. Soft tissues: No paravertebral stripe thickening. Note is made of an implanted left lower chest soft tissue cardiac monitoring device IMPRESSION: No acute bony abnormality. Chronic degenerative changes and scoliosis stable over time. Dictated by: Deandre Baig M.D. on 02/19/2025 at 11:15 Approved by: Deandre Baig M.D. on 02/19/2025 at 11:17
== END ==
PROVIDERS: PCP Family Medicine; Referring Provider Family Medicine; Visit Provider Family Medicine
DX: M51.360 Other intervertebral disc degeneration, lumbar region with discogenic back pain only (principal); M47.816 Spondylosis without myelopathy or radiculopathy, lumbar region; M48.56XA Collapsed vertebra, not elsewhere classified, lumbar region, initial encounter for fracture; M41.9 Scoliosis, unspecified; M51.35 Other intervertebral disc degeneration, thoracolumbar region; M47.814 Spondylosis without myelopathy or radiculopathy, thoracic region
CPT/HCPCS: 72070; 72100

== ENCOUNTER → 2025-05-05 08:52 | Outpatient (CLI) | payer MEDICARE, OTHER, SELFPAY ==
--- NOTE | 2025-05-05 08:54 | DI.MRI.S_ITS ---
PROCEDURE: MR PELVIC PROSTATE PROTOCOL INDICATIONS: ELEVATED PSA TECHNIQUE: Coronal HASTE, axial T1 FSE with fat saturation, 3-plane nonbreath-hold T2 FSE. After the administration of contrast, dynamic axial, delayed axial and coronal VIBE or 2-D FLASH with fat saturation through the pelvis. Diffusion weighted imaging and ADC was performed. COMPARISON: None. FINDINGS: Image quality: Diffusion weighted and dynamic contrast enhanced images are diagnostic. Prostate: Gland size is 3.2 x 4.1 x 3.6 cm; ellipsoid gland volume is 24.6 mL. Lesion 1: Location: Left posterolateral peripheral zone at the gland apex, on axial series four, image 12 and coronal series five, image 14 and 15. Size: About 1.6 cm. T2W signal: Moderately hypointense DWI signal: Markedly hyperintense. ADC signal: Markedly hypointense. Enhancement: Yes Extracapsular extension: Probable. The lesion abuts, and slightly bulges the capsule. There may be neurovascular bundle involvement. PI-RADS score: Five Genitourinary system: Bladder wall thickness is normal. Distal ureters are non distended. Bowel and peritoneum: No pathologic free pelvic fluid. Inferior colon and small bowel loops are normal in caliber. Nodes and vessels: No pelvic or inguinal adenopathy by size criteria. Iliac vessels are normal in caliber. Soft tissues: No inguinal hernias. Bones: Marrow demonstrates normal overall signal, without lesions to suggest metastases. IMPRESSION: PI-RADS five lesion in the left apical posterolateral peripheral zone with possible extracapsular extension. No pelvic lymphadenopathy by size criteria. No aggressive osseous abnormality. Dictated by: Bonny Olvera M.D. on 05/05/2025 at 16:21 Approved by: Bonny Olvera M.D. on 05/05/2025 at 16:33
== END ==
PROVIDERS: PCP Family Medicine; Referring Provider Family Medicine; Visit Provider Family Medicine
DX: N42.9 Disorder of prostate, unspecified (principal); R97.20 Elevated prostate specific antigen [PSA]
CPT/HCPCS: 72197; A9579